=== PATIENT | male | born 1950 | race Caucasian/White ===

== ENCOUNTER 2017-04-10 13:27 | Emergency (ER) | payer MEDICARE, OTHER ==
[2017-04-10] MEDS ORDERED: NS 0.9% 1000 ML* 1,000 ML IV ONE (13:44)
[2017-04-10 14:05] LABS: ABS Basophils 0 10^3/ul (0-0.2); ABS Eosinophils 0 10^3/ul (0-0.6); ABS Lymphocytes 1.4 10^3/ul (1.0-4.8); ABS Monocytes 0.6 10^3/ul (0-0.8); ABS Neutrophils 3.6 10^3/ul (1.5-7.7); ABS Nucleated RBC 0 10^3/ul; Eosinophil % 0.5 % (0-6); Hematocrit 46 % (42-52); Hemoglobin 15.4 g/dl (14.0-18.0); Lymphocyte % 25.1 % (25-47); Mean Corpuscular HGB Conc 33 g/dl (31-36); Mean Corpuscular Hemoglobin 30 pg (27-31); Mean Corpuscular Volume 89 fL (80-94); Mean Platelet Volume 9 um3 (7.4-10.4); Nucleated Red Blood Cells % 0.1; Platelet Count 214 10^3/ul (150-450); Red Blood Count 5.16 10^6/ul (4.0-5.4); Red Cell Distribution Width 14 % (10.5-15); White Blood Count 5.7 10^3/ul (3.5-10.8)
--- NOTE | 2017-04-10 14:14 | RAD ---
INDICATION: Tachycardia. COMPARISON: Comparison is made with prior chest x-ray study from December 07, 2015. TECHNIQUE: A portable view of the chest was obtained. FINDINGS: Cardiac and mediastinal contours appear to be within normal limits. The lungs are hyperinflated and clear. No pleural effusion is seen. IMPRESSION: NO EVIDENCE FOR ACUTE DISEASE.
[2017-04-10 14:15] LABS: INR 0.92 (0.77-1.02)
[2017-04-10 14:22] LABS: EGFR Non-African American 60.6 (>60)
[2017-04-10] MEDS ORDERED: Naloxone* 0.4 MG/ML 1 ML VIAL ONE (15:07)
[2017-04-10] MEDS ORDERED: fentaNYL* 50 MCG/ML 2 ML VIAL (100 MCG VIAL) ONE (15:07)
[2017-04-10] MEDS ORDERED: Flumazenil* 0.1 MG/ML 5 ML MDV ONE (15:07)
[2017-04-10] MEDS ORDERED: Midazolam* 1 MG/ML 10 ML VIAL (10 MG) ONE (15:07)
[2017-04-10] MEDS ORDERED: Apixaban* 5 MG TAB PO SCH (16:00)
--- NOTE | 2017-04-10 16:20 | ED ---
Vicente Duran Jennifer, scribed for Abdirahman Golden MD on 04/10/17 at 1357 . Shortness of Breath - HPI Summary HPI Summary: The patient is a 66 year old male who presents to the ED with shortness of breath that began last night. He was sent for a cardioversion by Dr. Oshea for his Afib. The patient additionally complains of lightheadedness and dizziness. He took two 80 mg Apirin tablets this morning. He had a cardiac ablation in 2004 , but denies taking medication for his Afib. The patient also denies taking blood thinners, as well as chest pain. - History of Current Complaint Chief Complaint: EDShortnessOfBreath Time Seen by Provider: 04/10/17 13:44 Hx Obtained From: Patient Onset/Duration: Lasting Hours - began last night, Still Present Current Severity: Mild Alleviating Factors: Nothing Associated Signs & Symptoms: Dizzy - lightheaded - Allergy/Home Medications Allergies/Adverse Reactions: Allergies Allergy/AdvReac Type Severity Reaction Status Date / Time No Known Allergies Allergy Verified 09/14/15 16:54 Home Medications: Home Medications Cholecalciferol TAB* [Vitamin D TAB*] 400 unit PO DAILY 04/10/17 [History Confirmed 04/10/17] Multivitamins/Minerals TAB* [Theragran/minerals TAB*] 1 tab PO DAILY 04/10/17 [ History Confirmed 04/10/17] Churdan-3 Fatty Acids (Nf) [Fish Oil (NF)] 1,000 mg PO DAILY 04/10/17 [History Confirmed 04/10/17] Vitamin B Complex TAB* [Complex B-100*] 1 tab PO DAILY 04/10/17 [History Confirmed 04/10/17] PMH/Surg Hx/FS Hx/Imm Hx Endocrine/Hematology History: Denies: Hx Diabetes Cardiovascular History: Reports: Hx Atrial Fibrillation Denies: Hx Hypertension Infectious Disease History: No Infectious Disease History: Denies: Traveled Outside the [place] in Last 30 Days - Family History Known Family History: Negative: Hypertension, Diabetes - Social History Smoking Status (MU): Never Smoked Tobacco Review of Systems Positive: Shortness Of Breath Neurological: Other - Dizzy, lightheaded All Other Systems Reviewed And Are Negative: Yes Physical Exam - Summary Physical Exam Summary: General: well-appearing, no pain distress Skin: warm, color reflects adequate perfusion, dry Head: normal Eyes: EOMI, KATY ENT: normal Neck: supple, nontender Respiratory: CTA, breath sounds present Cardiovascular: tachycardic. Irregularly irregular rhythm Abdomen: soft, nontender Bowel: present Musculoskeletal: normal, strength/ROM intact Neurological: normal, sensory/motor intact, A&O x3 Psychological: affect/mood appropriate Triage Information Reviewed: Yes Vital Signs On Initial Exam: Initial Vitals Temp Pulse Resp BP Pulse Ox 97.5 F 107 18 127/64 99 04/10/17 13:32 04/10/17 13:32 04/10/17 13:32 04/10/17 13:32 04/10/17 13:32 Vital Signs Reviewed: Yes Diagnostics - Vital Signs Vital Signs Temp Pulse Resp BP Pulse Ox 04/10/17 13:32 97.5 F 107 18 127/64 99 - Laboratory Lab Results: Lab Results 04/10/17 04/10/17 04/10/17 Range/Units 13:56 13:56 13:56 WBC (3.5-10.8) 10^3/ul RBC (4.0-5.4) 10^6/ul Hgb (14.0-18.0) g/dl Hct (42-52) % MCV (80-94) fL MCH (27-31) pg MCHC (31-36) g/dl RDW (10.5-15) % Plt Count (150-450) 10^3/ul MPV (7.4-10.4) um3 Neut % (Auto) (38-83) % Lymph % (Auto) (25-47) % Alcorn % (Auto) (1-9) % Eos % (Auto) (0-6) % Baso % (Auto) (0-2) % Absolute Neuts (auto) (1.5-7.7) 10^3/ul Absolute Lymphs (auto) (1.0-4.8) 10^3/ul Absolute Monos (auto) (0-0.8) 10^3/ul Absolute Eos (auto) (0-0.6) 10^3/ul Absolute Basos (auto) (0-0.2) 10^3/ul Absolute Nucleated RBC 10^3/ul Nucleated RBC % INR (Anticoag Therapy) 0.92 (0.77-1.02) APTT 33.2 (26.0-36.3) seconds Sodium 138 (133-145) mmol/L Potassium 4.4 (3.5-5.0) mmol/L Chloride 106 (101-111) mmol/L Carbon Dioxide 27 (22-32) mmol/L Anion Gap 5 (2-11) mmol/L BUN 17 (6-24) mg/dL Creatinine 1.20 H (0.67-1.17) mg/dL Est GFR ( Amer) 77.9 (>60) Est GFR (Non-Af Amer) 60.6 (>60) BUN/Creatinine Ratio 14.2 (8-20) Glucose 111 H (70-100) mg/dL Calcium 9.5 (8.6-10.3) mg/dL Magnesium 2.0 (1.9-2.7) mg/dL Total Bilirubin 0.80 (0.2-1.0) mg/dL AST 57 H (13-39) U/L ALT 32 (7-52) U/L Alkaline Phosphatase 73 (34-104) U/L Troponin I 0.01 (<0.04) ng/mL C-Reactive Protein 1.64 (< 5.00) mg/L B-Natriuretic Peptide 281 H ( - 100) pg/mL Total Protein 6.5 (6.4-8.9) g/dL Albumin 4.0 (3.2-5.2) g/dL Globulin 2.5 (2-4) g/dL Albumin/Globulin Ratio 1.6 (1-3) TSH 1.51 (0.34-5.60) mcIU/mL 04/10/17 Range/Units 13:56 WBC 5.7 (3.5-10.8) 10^3/ul RBC 5.16 (4.0-5.4) 10^6/ul Hgb 15.4 (14.0-18.0) g/dl Hct 46 (42-52) % MCV 89 (80-94) fL MCH 30 (27-31) pg MCHC 33 (31-36) g/dl RDW 14 (10.5-15) % Plt Count 214 (150-450) 10^3/ul MPV 9 (7.4-10.4) um3 Neut % (Auto) 63.6 (38-83) % Lymph % (Auto) 25.1 (25-47) % Alcorn % (Auto) 10.1 H (1-9) % Eos % (Auto) 0.5 (0-6) % Baso % (Auto) 0.7 (0-2) % Absolute Neuts (auto) 3.6 (1.5-7.7) 10^3/ul Absolute Lymphs (auto) 1.4 (1.0-4.8) 10^3/ul Absolute Monos (auto) 0.6 (0-0.8) 10^3/ul Absolute Eos (auto) 0 (0-0.6) 10^3/ul Absolute Basos (auto) 0 (0-0.2) 10^3/ul Absolute Nucleated RBC 0 10^3/ul Nucleated RBC % 0.1 INR (Anticoag Therapy) (0.77-1.02) APTT (26.0-36.3) seconds Sodium (133-145) mmol/L Potassium (3.5-5.0) mmol/L Chloride (101-111) mmol/L Carbon Dioxide (22-32) mmol/L Anion Gap (2-11) mmol/L BUN (6-24) mg/dL Creatinine (0.67-1.17) mg/dL Est GFR ( Amer) (>60) Est GFR (Non-Af Amer) (>60) BUN/Creatinine Ratio (8-20) Glucose (70-100) mg/dL Calcium (8.6-10.3) mg/dL Magnesium (1.9-2.7) mg/dL Total Bilirubin (0.2-1.0) mg/dL AST (13-39) U/L ALT (7-52) U/L Alkaline Phosphatase (34-104) U/L Troponin I (<0.04) ng/mL C-Reactive Protein (< 5.00) mg/L B-Natriuretic Peptide ( - 100) pg/mL Total Protein (6.4-8.9) g/dL Albumin (3.2-5.2) g/dL Globulin (2-4) g/dL Albumin/Globulin Ratio (1-3) TSH (0.34-5.60) mcIU/mL Result Diagrams: 04/10/17 13:56 04/10/17 13:56 Lab Statement: Any lab studies that have been ordered have been reviewed, and results considered in the medical decision making process. - Radiology CXR Xray Interpretation: No Acute Changes - NO EVIDENCE FOR ACUTE DISEASE. Dr. Golden has reviewed this report. Radiology Interpretation Completed By: Radiologist - EKG 13:36 EKG Interpretation: Rapid Afib at 126 BPM 16:03 Cardiac Rate: NL EKG Rhythm: Sinus Rhythm - [address] Segment: Normal Ectopy: None Course/Dx - Course Course Of Treatment: BP noted and advised to follow up with PCP. Medications reviewed. DR MURRIETA SAW PATIENT IN THE ED AND CARDIOVERTED THE PATIENT BACK INTO NORMAL SINUS. CRITICAL CARE TIME LESS THAN 30 MINUTES. - Diagnoses Provider Diagnoses: Blood pressure elevated without history of HTN, Rapid atrial fibrillation - Physician Notifications Discussed Care of Patient With: Alvaro Murrieta Time Discussed With Above Provider: 14:35 Instructed by Provider To: MD Will See In ED - Dr. Murrieta, cardiology, will see patient in ED. Discharge - Discharge Plan Condition: Stable Disposition: HOME Patient Education Materials: A-fib (Atrial Fibrillation) (ED) Referrals: Fili Blas MD [Primary Care Provider] - Mark Oshea MD [Medical Doctor] - Additional Instructions: FOLLOW UP WITH YOUR DOCTOR. RETURN TO THE EMERGENCY DEPARTMENT FOR ANY WORSENING OF YOUR CONDITION OR QUESTIONS OR CONCERNS. Your blood pressure was elevated during todays visit; please follow up with your primary care provider within a week for further evaluation. The documentation as recorded by the Vicente blue Jennifer accurately reflects the service I personally performed and the decisions made by me, Abdirahman Golden MD.
[2017-04-10 17:29] VITALS: BP 115/76
--- NOTE | 2017-04-10 20:57 | CONS ---
CC: Mark Oshea MD * CARDIOLOGY CONSULTATION: DATE OF CONSULTATION: 04/10/17 - EMERGENCY DEPT INDICATION FOR CONSULTATION: Atrial fibrillation. HISTORY OF PRESENT ILLNESS: The patient is a 66-year-old gentleman with a history of lone atrial fibrillation who comes to the emergency room after having onset of atrial fibrillation overnight. The patient states that he was of his normal health yesterday. He had no problems, no palpitations, no shortness of breath. The patient woke up in the middle of night noticing that his heart was irregular. This morning, he called Dr. Oshea's office and was instructed to go to the emergency room. On arrival, the patient is in atrial fibrillation with a heart rate of 120. He has no chest pain. He has no orthopnea, no PND, no lightheadedness, dizziness, or syncope. PAST MEDICAL HISTORY: For atrial fibrillation, the patient had an ablative procedure done at [facility] in [facility] 15 years ago. He has had 3 episodes of atrial fibrillation since then, each have responded to cardioversion. MEDICATIONS: He is not on any medications. ALLERGIES: No known drug allergies. SOCIAL HISTORY: He is . Rare alcohol intake. No tobacco intake. He exercises regularly. FAMILY HISTORY: Noncontributory. PHYSICAL EXAMINATION: Vital Signs: Height is 5 feet 9 inches, weight is 190 pounds. Temperature 97.5, heart rate is 107, respiratory rate is 18, oxygen saturation 99% on room air, blood pressure 127/64. HEENT: Sclerae anicteric. Oropharynx is pink without erythema. Carotids are 2+ without bruits. JVD is normal. Thyroid is normal. Cardiac Exam: S1, S2 without any murmurs, rubs, or gallops. Lungs are clear to auscultation bilaterally. There is no dullness to percussion. Abdomen is soft, nontender, nondistended with normoactive bowel sounds. Extremities show no edema. He has 2+ pulses throughout. The patient is awake, alert, and oriented. He moves all 4 extremities equally. LABORATORY STUDIES: Chemistries within normal limits. BUN 27, creatinine 1.12 , creatinine clearance 60. AST and ALT are normal. Troponin 0.01. BNP is minimally elevated at 281. TSH is normal at 1.5. IMAGING: EKG shows atrial fibrillation, otherwise unremarkable. The patient did have an echocardiogram and a stress echocardiogram in 2016, both of which were unremarkable. On his stress echocardiogram, he exercised for 10 minutes. No EKG changes. No arrhythmias. He had normal augmentation of his left ventricle. IMPRESSION: This is a 66-year-old gentleman with a history of lone atrial fibrillation who had an onset of atrial fibrillation last night. He is still in atrial fibrillation this morning. RECOMMENDATIONS: For now, my recommendation is for the patient to undergo a cardioversion. He has had this done before. The patient does not want to wait until tomorrow due to his cardioversion. The patient will be discharged from the emergency room on Eliquis 5 mg b.i.d. His other medications will remain the same. The patient will follow up with Dr. Oshea in 1 to 2 weeks. [id number]/CPS #: [id number] MTDD
--- NOTE | 2017-04-10 21:55 | CARD ---
CC: Dr. Oshea * CARDIOVERSION NOTE: DATE OF PROCEDURE: 04/10/17 - EMERGENCY DEPT PROCEDURE: Cardioversion. INDICATIONS: Atrial fibrillation. The patient is a 66-year-old gentleman with a history of lone atrial fibrillation, who came to the emergency room with an episode of AFib, but he has been in less than 24 hours. Cardioversion was recommended. DESCRIPTION OF PROCEDURE: The patient was in a fasting state. Informed consent had been obtained prior to the procedure. All labs had been reviewed. The patient was given 1 dose of Eliquis 5 mg prior to the procedure. The patient was given 5 mg of Versed and 50 mcg of fentanyl for conscious sedation. The patient was cardioverted with 150 joules of synchronized biphasic energy. The patient tolerated the procedure well with no complications. The patient will see Dr. Oshea in followup. [id number]/[facility] #: [id number] MTDD
== END 2017-04-10 17:32 | disposition home or self-care (01) ==
LOC: ED 13:27
DX: I48.91 Unspecified atrial fibrillation (principal); R03.0 Elevated blood-pressure reading, without diagnosis of hypertension; R42 Dizziness and giddiness; R06.02 Shortness of breath
CPT/HCPCS: 36415; 71045; 80053; 83735; 83880; 84443; 84484; 85025; 85610; 85730; 86140; 92960; 93005; 96360; 99156; 99282; J2250; J2310; J3010

== ENCOUNTER → 2017-05-05 11:02 | Day surgery (SDC) | payer MEDICARE, OTHER ==
[~2017-05-05 11:02] MED LIST: Flumazenil* 0.1 MG/ML 5 ML MDV ONE; Lidocaine 2% VISCOUS* 15 ML UDC ONE; Metoprolol Succinate XL TAB* 25 MG PO SCH; Midazolam* 1 MG/ML 10 ML VIAL (10 MG) ONE; Naloxone* 0.4 MG/ML 1 ML VIAL ONE; fentaNYL* 50 MCG/ML 2 ML VIAL (100 MCG VIAL) ONE
--- NOTE | 2017-05-06 05:20 | CARD ---
CC: Dr. Blas; Mark Oshea MD* PROCEDURE NOTE: DATE OF PROCEDURE: 05/05/17 This is a patient of Dr. Blas's. PROCEDURE: DERREK cardioversion. INDICATION: This is a very pleasant 66-year-old gentleman with a longstanding history of atrial fibrillation over many years and also has had previous cardioversions as well as an ablation. He had an episode of AFib requiring cardioversion on 04/10/17. Mr. Del Toro was treated with Eliquis, but subsequently discontinued after 3 or 4 days. He noticed last night that his heart was irregular and fast and associated with fatigue and lightheadedness. He called the office this morning because of those symptoms. He was fasting and was told to come to [facility] where we arranged for a DERREK-guided cardioversion. He also took his Eliquis last night and this morning. DETAILS OF PROCEDURE: Informed consent was obtained and his longstanding partner, Eliana, accompanied him. We discussed the potential for recurrent AFib despite a cardioversion and the need to consider longer term interventions to prevent AFib in terms of avoiding risk factors including caffeine and alcohol use, as well as perhaps using a beta cheryl or any antiarrhythmic over the longer time period to prevent recurrences. We also discussed the possibility of a repeat EP consultation. Informed consent was obtained. The patient was premedicated with 10 mg of Versed and 75 mcg of fentanyl. A DERREK was performed without complications, revealed no evidence of thrombus in the left atrial appendage; however, there was spontaneous contrast in the left atrium. There was [id number] biatrial enlargement and there was moderately reduced LV function with EF of 35 % to 40%, and moderately reduced RV function, he had mild MR. A single synchronized biphasic shock of 120 joules was applied with successful conversion to sinus rhythm. IMPRESSION: Mr. Del Toro has had another episode of atrial fibrillation despite a recent cardioversion earlier this month and a history of ablation in the remote past. At this point, the plan is as follows: 1. He is to continue to avoid caffeine and alcohol. 2. He is to start metoprolol 12.5 mg once a day and a prescription was sent in for him. He understands the potential for the metoprolol to cause bradycardia and hypotension and will need to monitor. He is to have a followup visit within 1 to 2 weeks' time. I asked him to consider the possibility of an EP consultation given the reduced LV function. I think a long-term strategy of better control of his rate and rhythm to try to avoid tachycardia-induced cardiomyopathy is desirable. Further recommendations will depend on his clinical course. [id number]/[facility] #: [id number] MTDD
--- NOTE | 2017-05-06 10:22 | TEE ---
Patient: TANGELA GALINDO [facility] Rec#: [id number] : 1950 Date: 05/05/2017 Age: 66y Height: 177.8 cm / 70.0 in Weight: 88.5 kg / 195.1 lbs Sex: M BSA: 2.1 Admit Date#: 05/05/2017 Referring: Mark Oshea MD Performing: Mark Oshea MD Reading: Mark Oshea MD Tile Sorter: Mayi Hester RN RD Nurse: Rian Ramirez RN Transesophageal Echocardiogram Indication: Atrial fibrillation BP: 106/68 HR: 137 Rhythm: A-Fib Findings History: Atrial fibrillation with prior ablation and cardiversions Technical Comments: The study quality is good. Left Ventricle: The left ventricular chamber size is normal. There is global hypokinesis of the left ventricle with minor regional variation. There is moderately decreased left ventricular systolic function. The estimated ejection fraction is 35-40%. The assessment of diastolic function is non-diagnostic. Left Atrium: The left atrium is moderately dilated. Spontaneous echo contrast is present in the left atrium cavity and appendage. No thrombus is visualized within the left atrium. There is no thrombus visualized in the left atrial appendage. Right Ventricle: The right ventricular cavity size is normal. The right ventricular global systolic function is moderately reduced. Right Atrium: The right atrium is mildly dilated. The bubble study is negative. A patent foramen ovale is not demonstrated with color Doppler and agitated contrast. Aortic Valve: The aortic valve is trileaflet. The aortic valve leaflets are mildly thickened. There is mild aortic regurgitation. There is no evidence of aortic stenosis. Mitral Valve: The mitral valve leaflets are mildly thickened. There is mild mitral regurgitation. with dual jets. There is no evidence of mitral stenosis. Tricuspid Valve: The tricuspid valve leaflets are normal. There is mild tricuspid regurgitation. There is no tricuspid stenosis. Pulmonic Valve: The pulmonic valve appears normal. There is a trace pulmonic regurgitation. There is no pulmonic stenosis. Pericardium: There is no significant pericardial effusion. Aorta: There is mild dilatation of the ascending aorta. The aortic root is normal in size.There is mild atherosclerotic plaque seen in the aorta. Pulmonary Artery: The main pulmonary artery appears normal. Venous: The bicaval view was obtained and appears normal. The pulmonary veins appear normal.3 of 4 veins were visualized. DERREK Procedures: All standard views were attempted within the limitations of patient tolerance and safety. History and physical as well as labs were reviewed. The patient was in a fasting state. Risks and benefits of the procedure, including alternatives, were discussed and written informed consent was obtained. The patient and/or their health care it sales representative expressed understanding of the procedure, risks and benefits. Baseline and continuous monitoring of blood pressure, heart rate, pulse oximetry and heart rhythm was performed throughout the procedure. The appropriate time-out procedure was performed as per [facility] protocol. The patient was placed in the left lateral decubitus position. The patient received IV Midazolam with a total dose of 10 mg. The patient received IV Fentanyl with a total dose of 75 mcg. An oral bite block was inserted for protection of oral dentition. The multiplane transesophageal echocardiogram probe was inserted through the posterior oropharynx and advanced into the esophagus without difficulty. Multiple 2D images were obtained of the heart and its related structures. Color flow Doppler was used for evaluation. Spectral Doppler was also used. The atrial septum was interrogated with color flow Doppler. At the conclusion of the procedure the probe was removed with continuous suction without complications. The patient tolerated the procedure with no apparent complications. Contrast: Normal saline was used as contrast for the bubble study. Image 53. Conclusions There is global hypokinesis of the left ventricle with minor regional variation. There is moderately decreased left ventricular systolic function. The estimated ejection fraction is 35-40%. The left atrium is moderately dilated. Spontaneous echo contrast is present in the left atrium cavity and appendage. The right atrium is mildly dilated. There is mild aortic regurgitation. The aortic valve leaflets are mildly thickened. There is mild mitral regurgitation with dual jets. There is mild tricuspid regurgitation. There is mild dilatation of the ascending aorta. The aortic root is normal in size.There is mild atherosclerotic plaque seen in the aorta. No prior [facility] echo. Measurements Name Value Normal Range Aortic Annulus 2.5 cm (1.4 - 2.6) Ao root diameter (2D) 3.1 cm (2.1 - 3.5) Ascending Ao 3.7 cm (2.1 - 3.4) Name Value Normal Range MV E-wave Vmax 0.83 m/sec - MV deceleration time 64 msec -
== END | disposition home or self-care (01) ==
LOC: CHICATH 11:02
PROVIDERS: ATTEND Internal Medicine Cardiovascular Disease
DX: I48.0 Paroxysmal atrial fibrillation (principal); I08.0 Rheumatic disorders of both mitral and aortic valves; I44.0 Atrioventricular block, first degree; R06.09 Other forms of dyspnea; Z79.01 Long term (current) use of anticoagulants; R06.02 Shortness of breath; R42 Dizziness and giddiness
CPT/HCPCS: 92960; 93312; 93325; 99156; 99157; J2250; J2310; J3010

== ENCOUNTER 2017-07-31 09:00 | Emergency (ER) | payer MEDICARE, OTHER ==
[2017-07-31 09:31] LABS: ABS Basophils 0 10^3/ul (0-0.2); ABS Eosinophils 0 10^3/ul (0-0.6); ABS Lymphocytes 1.4 10^3/ul (1.0-4.8); ABS Monocytes 0.4 10^3/ul (0-0.8); ABS Neutrophils 3.5 10^3/ul (1.5-7.7); ABS Nucleated RBC 0 10^3/ul; Eosinophil % 0.7 % (0-6); Hematocrit 48 % (42-52); Hemoglobin 15.7 g/dl (14.0-18.0); Lymphocyte % 25.4 % (25-47); Mean Corpuscular HGB Conc 33 g/dl (31-36); Mean Corpuscular Hemoglobin 30 pg (27-31); Mean Corpuscular Volume 90 fL (80-94); Mean Platelet Volume 9.3 um3 (7.4-10.4); Nucleated Red Blood Cells % 0; Platelet Count 228 10^3/ul (150-450); Red Blood Count 5.31 10^6/ul (4.0-5.4); Red Cell Distribution Width 14 % (10.5-15); White Blood Count 5.4 10^3/ul (3.5-10.8)
[2017-07-31 09:49] LABS: EGFR Non-African American 56.1 (>60)
[2017-07-31 09:55] LABS: INR 0.9 (0.77-1.02)
[2017-07-31] MEDS ORDERED: Enoxaparin(*) 80 MG/0.8 ML SYR SUBCUT ONE (10:54)
--- NOTE | 2017-07-31 14:32 | RAD ---
HISTORY: Shortness of breath, atrial fibrillation COMPARISONS: April 10, 2017 VIEWS: 1: frontal portable view of the chest at 10:05 AM FINDINGS: LINES AND TUBES: None. CARDIOMEDIASTINAL SILHOUETTE: The cardiomediastinal silhouette is normal for portable technique. PLEURA: The costophrenic angles are sharp. No pleural abnormalities are noted. LUNG PARENCHYMA: The lungs are clear. ABDOMEN: The upper abdomen is clear. There is no subphrenic gas. BONES AND SOFT TISSUES: No bone or soft tissue abnormalities are noted. IMPRESSION: NO ACTIVE CARDIOPULMONARY DISEASE.
[2017-07-31] MEDS ORDERED: fentaNYL* 50 MCG/ML 2 ML VIAL (100 MCG VIAL) ONE (15:25)
[2017-07-31] MEDS ORDERED: Naloxone* 0.4 MG/ML 10 ML VIAL ONE (15:26)
[2017-07-31] MEDS ORDERED: Midazolam* 1 MG/ML 10 ML VIAL (10 MG) ONE (15:26)
[2017-07-31] MEDS ORDERED: Flumazenil* 0.1 MG/ML 5 ML MDV ONE (15:26)
--- NOTE | 2017-07-31 16:43 | ED ---
Gregg Duran Rebecca, scribed for Josiah Cyr on 07/31/17 at 0924 . Palpitations / Dysrhythmia - HPI Summary HPI Summary: Pt is a 67 y/o M with a PMHx of A Fib who presents to ED c/o irregular heart rhythm. 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 Oshea) and spoke with Dr. Mittal who referred him to [facility]. He fell asleep and upon waking up this morning felt worse, prompting him to come to the ED. Took 3x 81 mg ASA last night. Sx aggravated and alleviated by nothing. Additionally c/o dizziness, lightheadedness and SOB. Denies CP. Symptoms are typical for when he has an episode of A Fib. Is not on blood thinner and stress test done last week. Took an extra dose of Lopressor last night and confirms that he is typically in sinus rhythm. - History of Current Complaint Chief Complaint: EDChestPainROMI Time Seen by Provider: 07/31/17 09:07 Hx Obtained From: Patient Onset/Duration: Lasting Hours - Started at 1600 yesterday, Still Present Character: Irregular Aggravating: Nothing Alleviating: Nothing Associated Signs & Symptoms: Lightheadedness, Dizzy, Shortness of Breath Related History: Similar Episode/Dx as - Prior A Fib exacerbations - Allergy/Home Medications Allergies/Adverse Reactions: Allergies Allergy/AdvReac Type Severity Reaction Status Date / Time No Known Allergies Allergy Verified 07/31/17 09:01 PMH/Surg Hx/FS Hx/Imm Hx Endocrine/Hematology History: Denies: Hx Diabetes Cardiovascular History: Reports: Hx Atrial Fibrillation Denies: Hx Hypertension Infectious Disease History: No Infectious Disease History: Denies: Traveled Outside the [place] in Last 30 Days - Family History Known Family History: Negative: Hypertension, Diabetes - Social History Alcohol Use: None Substance Use Type: Reports: None Smoking Status (MU): Never Smoked Tobacco Review of Systems Positive: Palpitations - irregular. Negative: Chest Pain Positive: Shortness Of Breath Neurological: Other - Dizziness, lightheadedness All Other Systems Reviewed And Are Negative: Yes Physical Exam - Summary Physical Exam Summary: Appearance: Well appearing, no pain distress Skin: warm, dry, reflects adequate perfusion Head/face: normal Eyes: EOMI, KATY ENT: normal Neck: supple, non-tender Respiratory: CTA, breath sounds present Cardiovascular: IRR, pulses symmetrical ~ Abdomen: non-tender, soft Bowel: present Musculoskeletal: normal, strength/ROM intact Neuro: normal, sensory motor intact, A&Ox3 Triage Information Reviewed: Yes Vital Signs On Initial Exam: Initial Vitals Temp Pulse Resp BP Pulse Ox 97.1 F 93 16 124/84 100 07/31/17 09:06 07/31/17 09:06 07/31/17 09:06 07/31/17 09:06 07/31/17 09:06 Vital Signs Reviewed: Yes Diagnostics - Vital Signs Vital Signs Temp Pulse Resp BP Pulse Ox 07/31/17 09:09 81 24 124/85 99 07/31/17 09:08 65 97 07/31/17 09:06 97.1 F 93 16 124/84 100 - Laboratory Lab Results: Lab Results 07/31/17 07/31/17 07/31/17 Range/Units 09:22 09:22 09:22 WBC 5.4 (3.5-10.8) 10^3/ul RBC 5.31 (4.0-5.4) 10^6/ul Hgb 15.7 (14.0-18.0) g/dl Hct 48 (42-52) % MCV 90 (80-94) fL MCH 30 (27-31) pg MCHC 33 (31-36) g/dl RDW 14 (10.5-15) % Plt Count 228 (150-450) 10^3/ul MPV 9.3 (7.4-10.4) um3 Neut % (Auto) 65.6 (38-83) % Lymph % (Auto) 25.4 (25-47) % [place] % (Auto) 7.7 H (0-7) % Eos % (Auto) 0.7 (0-6) % Baso % (Auto) 0.6 (0-2) % Absolute Neuts (auto) 3.5 (1.5-7.7) 10^3/ul Absolute Lymphs (auto) 1.4 (1.0-4.8) 10^3/ul Absolute Monos (auto) 0.4 (0-0.8) 10^3/ul Absolute Eos (auto) 0 (0-0.6) 10^3/ul Absolute Basos (auto) 0 (0-0.2) 10^3/ul Absolute Nucleated RBC 0 10^3/ul Nucleated RBC % 0 INR (Anticoag Therapy) (0.77-1.02) APTT (26.0-36.3) seconds Sodium 136 L (139-145) mmol/L Potassium 4.4 (3.5-5.0) mmol/L Chloride 105 (101-111) mmol/L Carbon Dioxide 28 (22-32) mmol/L Anion Gap 3 (2-11) mmol/L BUN 20 (6-24) mg/dL Creatinine 1.28 H (0.67-1.17) mg/dL Est GFR ( Amer) 72.1 (>60) Est GFR (Non-Af Amer) 56.1 (>60) BUN/Creatinine Ratio 15.6 (8-20) Glucose 151 H (70-100) mg/dL Lactic Acid 2.0 (0.5-2.0) mmol/L Calcium 9.3 (8.6-10.3) mg/dL Magnesium 2.0 (1.9-2.7) mg/dL Total Bilirubin 0.70 (0.2-1.0) mg/dL AST 24 (13-39) U/L ALT 31 (7-52) U/L Alkaline Phosphatase 76 (34-104) U/L Troponin I 0.01 (<0.04) ng/mL B-Natriuretic Peptide ( - 100) pg/mL Total Protein 6.4 (6.4-8.9) g/dL Albumin 3.8 (3.2-5.2) g/dL Globulin 2.6 (2-4) g/dL Albumin/Globulin Ratio 1.5 (1-3) TSH 1.72 (0.34-5.60) mcIU/mL 07/31/17 07/31/17 Range/Units 09:22 09:22 WBC (3.5-10.8) 10^3/ul RBC (4.0-5.4) 10^6/ul Hgb (14.0-18.0) g/dl Hct (42-52) % MCV (80-94) fL MCH (27-31) pg MCHC (31-36) g/dl RDW (10.5-15) % Plt Count (150-450) 10^3/ul MPV (7.4-10.4) um3 Neut % (Auto) (38-83) % Lymph % (Auto) (25-47) % [place] % (Auto) (0-7) % Eos % (Auto) (0-6) % Baso % (Auto) (0-2) % Absolute Neuts (auto) (1.5-7.7) 10^3/ul Absolute Lymphs (auto) (1.0-4.8) 10^3/ul Absolute Monos (auto) (0-0.8) 10^3/ul Absolute Eos (auto) (0-0.6) 10^3/ul Absolute Basos (auto) (0-0.2) 10^3/ul Absolute Nucleated RBC 10^3/ul Nucleated RBC % INR (Anticoag Therapy) 0.90 (0.77-1.02) APTT 28.9 (26.0-36.3) seconds Sodium (139-145) mmol/L Potassium (3.5-5.0) mmol/L Chloride (101-111) mmol/L Carbon Dioxide (22-32) mmol/L Anion Gap (2-11) mmol/L BUN (6-24) mg/dL Creatinine (0.67-1.17) mg/dL Est GFR ( Amer) (>60) Est GFR (Non-Af Amer) (>60) BUN/Creatinine Ratio (8-20) Glucose (70-100) mg/dL Lactic Acid (0.5-2.0) mmol/L Calcium (8.6-10.3) mg/dL Magnesium (1.9-2.7) mg/dL Total Bilirubin (0.2-1.0) mg/dL AST (13-39) U/L ALT (7-52) U/L Alkaline Phosphatase (34-104) U/L Troponin I (<0.04) ng/mL B-Natriuretic Peptide 248 H ( - 100) pg/mL Total Protein (6.4-8.9) g/dL Albumin (3.2-5.2) g/dL Globulin (2-4) g/dL Albumin/Globulin Ratio (1-3) TSH (0.34-5.60) mcIU/mL Result Diagrams: 07/31/17 09:22 07/31/17 09:22 Lab Statement: Any lab studies that have been ordered have been reviewed, and results considered in the medical decision making process. - Radiology CXR Xray Interpretation: No Acute Changes - NO ACTIVE CARDIOPULMONARY DISEASE. ED physician reviewed this report. Radiology Interpretation Completed By: Radiologist - EKG 0910 Cardiac Rate: NL - 94 bpm EKG Rhythm: Atrial Fibrillation EKG Interpretation: No acute changes Re-Evaluation - Re-Evaluation First Eval Re-Evaluation Time: 10:57 Comment: Explained that Dr. Mittal will be coming to the ED. Course/Dx - Course Assessment/Plan: Pt is a 67 y/o M referred from his bilingual middle school teacher with a PMHx of A Fib who presents to ED c/o irregular heart rhythm since last night at 1600. Took 3x 81 mg ASA last night. Additionally c/o dizziness, lightheadedness and SOB. Denies CP. Symptoms are typical for when he has an episode of A Fib. Is not on blood thinner and stress test done last week. Took an extra dose of Lopressor last night and confirms that he is typically in sinus rhythm. Blood work was done. Results include a troponin of 0.01. CXR reveals no acute findings. EKG is A Fib. Discussed care of pt with Dr. Mittal who advised Lovenox then he will come in and cardiovert the patient. Later he states the patient can go home if he is no longer having symptoms. In the ED course, pt received Lovenos, Versed, Romazican, and Fentanyl. - Diagnoses Differential Diagnosis/HQI/PQRI: Positive: AV Block, Paroxymal SVT, Other - a fib Provider Diagnoses: Atrial fibrillation - Physician Notifications Discussed Care Of Patient With: Josefina Mittal Time Discussed With Above Provider: 10:54 Instructed by Provider To: Other - Advised Lovenox then he will come in and cardiovert the patient. Discharge - Sign-Out/Discharge Documenting (check all that apply): Discharge/Admit/Transfer - Discharge Plan Condition: Stable Disposition: HOME Patient Education Materials: A-fib (Atrial Fibrillation) (ED) Referrals: Fili Blas MD [Primary Care Provider] - 3 Days (Follow up with your primary doctor regarding your symptoms today. ) Additional Instructions: RETURN TO THE EMERGENCY DEPARTMENT FOR WORSENING SYMPTOMS - Billing Disposition and Condition Condition: STABLE Disposition: HOME The documentation as recorded by the Gregg blue Rebecca accurately reflects the service I personally performed and the decisions made by , Josiah Cyr.
[2017-07-31 16:59] VITALS: BP 123/56
--- NOTE | 2017-07-31 22:11 | CONS ---
CC: Dr. Oshea; Dr. Mittal; ER physician * CARDIOLOGY CONSULTATION REPORT: DATE OF CONSULT: 07/31/17 - EMERGENCY DEPT HISTORY OF PRESENT ILLNESS: I was asked by ER physician to see this patient, who is a 67-year-old male patient, who presented to the emergency room with symptomatic atrial fibrillation since last night. The patient is followed up with Dr. Oshea from cardiac standpoint as an outpatient. He does have known history of atrial fibrillation in 2001, he underwent radiofrequency ablation. Since the early beginning of this year in March and then in May, he had 2 cardioversions for symptomatic atrial fibrillation. The last one was on that was done DERREK guided by Dr. Oshea. There was no evidence of clots in the left atrium or in the left atrial appendage. He was maintained on Eliquis 5 mg twice a day for at least 4 weeks after the procedure. He said yesterday and a few days ago, he had been working outside with the heat, but yesterday he felt symptomatic with tachycardia, dizziness, some shortness of breath. He presented to the emergency room. He is in atrial fibrillation, but with control heart rate. He gives no symptoms of chest pain, no orthopnea, no syncope, no fever, no chills, no nausea, no vomiting, no hematochezia, no skin rash, no abdominal pain, no swelling in the lower extremities is appreciated. PAST MEDICAL HISTORY: His other medical issues include spinal stenosis and aortic sclerosis. He had a history of cardiomyopathy by history, but he had limited followup echo in July that showed EF 55%. He had a stress echo by Dr. Oshea last week, which was normal as per the Cardiology report. MEDICATIONS: As an outpatient: 1. [place]-3 once a day. 2. Vitamin D3 1000 units once a day. 3. Aspirin 81 mg daily. 4. CoQ10 100 mg daily. 5. Multivitamins daily. 6. Vitamin B6 daily. 7. Metoprolol 25 mg half of it daily. ALLERGIES: No known drug allergies. SOCIAL HISTORY: He gives no history of smoking, no drinking, no history of illicit drug use. He is single. He is retired. 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 REVIEW OF SYSTEMS: His review of all other systems essentially is negative. PHYSICAL EXAM: He is awake, alert, and oriented. He is not in acute distress. His vitals, blood pressure is 120/70 in the emergency room; pulse is 95, he is in atrial fibrillation. He is afebrile. Head and Neck Exam: Normocephalic and atraumatic head. Ears, Nose, and Throat: Essentially benign. Neck: Supple. JVP is not elevated. No carotid bruits. No masses in the neck are appreciated. Chest: Clear to auscultation. No rales, no wheezes. No added sounds appreciated. Heart: Irregularly irregular. S1, S2. No added sounds. No gallops. No rubs. Abdomen: Benign. Positive bowel sounds. Extremities: No edema, no cyanosis, no clubbing. Skin exam is normal. Psych: Normal affect and mood. CLICKER OPERATOR: No focal deficits appreciated. DIAGNOSTIC STUDIES/LAB DATA: EKG showed him to be in atrial fibrillation, nonspecific T abnormality. His labs showed white blood cells 5.4, hemoglobin 15.7, hematocrit 48, and platelets 228. Chemistry showed sodium 136, potassium 4.4, chloride 105, BUN 20 , creatinine 1.28. BNP 248. IMPRESSION: The patient is a 67-year-old male patient with: 1. Atrial fibrillation recent, probably started last night within 24 hours or less actually, symptomatic. 2. Known history of atrial fibrillation, status post radiofrequency ablation in 2001. 3. Recurrent atrial fibrillation twice since the beginning of 2017 requiring DERREK- guided cardioversion; the last one was on 05/05/17. He had no evidence of thrombus in the left atrium or in the left atrial appendage. 4. The patient completed Eliquis 5 mg twice a day for 4 weeks after his last cardioversion. 5. Recent stress echo was normal by Dr. Oshea, which was done last week. 6. Followup limited echo showed left ventricular systolic function to be recovering to normal 55%. PLAN: At the present time, we will proceed with direct current cardioversion. Benefits, risks discussed with the patient. He is willing to proceed. I discussed this at length with him. I answered all his concerns and questions up to satisfaction. I made it clear that he needs to avoid alcohol, significant stimulants, and caffeinated drinks definitely need to be avoided. He is to stay well hydrated. He is to keep potassium, magnesium within normal limits. He is to follow up with Dr. Oshea accordingly, which he does have actually a future followup visit with him and he does have a followup with the electro-nursing director in [place] for consideration for his recurrent symptomatic atrial fibrillation. I answered all their concerns and questions up to their satisfaction. Any further recommendations will be pending his clinical outcome after his cardioversion. TIME SPENT: More than half of at least 60- to 65-plus minute was [id number] in the education and counseling mode explaining all of the above and answering all his concerns and questions up to satisfaction. [id number]/[facility] #: [id number] DANYELLE
--- NOTE | 2017-07-31 22:20 | CARD ---
CC: Dr. Oshea; Dr. Mittal; ER Physician * DIRECT CURRENT CARDIOVERSION NOTE: DATE OF PROCEDURE: 07/31/17 - EMERGENCY DEPT PROCEDURE: Direct current cardioversion. INDICATIONS: The patient is a 67-year-old male patient who presented with symptomatic rapid atrial fibrillation to the emergency room of less than 24 hours. The patient does have known history of atrial fibrillation and history of radiofrequency ablation in the past. His last cardioversion was in May 2017, a transesophageal-guided cardioversion. The DERREK then showed no evidence of thrombus in the left atrium or in the left atrial appendage. The patient did receive one dose of Lovenox 80 mg subcu in the emergency room today. DESCRIPTION OF PROCEDURE: After informed written consent had been obtained and with continuous blood pressure, pulse oximetry and heart rate monitoring, the patient did receive a total dose of Versed 4 mg intravenously and 50 mcg fentanyl intravenously. Direct current cardioversion was done at the bedside in the emergency room. A synchronized 150 Joules were delivered once and successfully converted the patient to normal sinus rhythm. There were no complications. The patient tolerated the procedure very well. An immediate EKG was obtained and confirmed the patient to be in normal sinus rhythm. CONCLUSION: Successful direct current cardioversion for atrial fibrillation. The patient is in normal sinus rhythm. There were no complications. The patient tolerated the procedure very well. [id number]/[facility] #: [id number] MTDD
== END 2017-07-31 16:58 | disposition home or self-care (01) ==
LOC: ED 09:00
DX: I48.91 Unspecified atrial fibrillation (principal); R42 Dizziness and giddiness; R06.02 Shortness of breath
CPT/HCPCS: 36415; 71045; 80053; 83605; 83735; 83880; 84443; 84484; 85025; 85610; 85730; 92960; 93005; 99156; 99285; J1650; J2250; J2310; J3010